=== PATIENT | male | born 1950 | race Caucasian/White ===

== ENCOUNTER 2018-10-31 14:10 | Observation (INO) | payer MEDICARE, BC ==
[~2018-10-31] VITALS: Ht 188 cm; Wt 128.0 kg
[2018-10-31] MEDS ORDERED: SODIUM CHLORIDE FLUSH 10ML SYR IVF ONE (14:30)
[2018-10-31 14:43] LABS: HCT (SEDRATE) 48.2 % (39.2-51.8)
[2018-10-31 14:45] LABS: BASOPHILS # (AUTO) 0.07 x10^3/uL (0-0.1); BASOPHILS % (AUTO) 1 % (0-1); EOSINOPHILS # (AUTO) 0.61 x10^3/uL (0-0.4); EOSINOPHILS % (AUTO) 8 % (1-7); LYMPHOCYTES % (AUTO) 22 % (22-44); MD NO; MEAN CORPUSCULAR HEMOGLOBIN 29.7 pg (27.5-34.5); MEAN PLATELET VOLUME 8.7 fL (7.4-10.4); MONOCYTES # (AUTO) 0.47 x10^3/uL (0.2-0.8); MONOCYTES % (AUTO) 6 % (2-9); NEUTROPHILS # (AUTO) 4.55 x10^3/uL (1.8-6.8); NEUTROPHILS % (AUTO) 62 % (42-75); PLATELET COUNT 193 x10^3/uL (130-400); RED BLOOD COUNT 5.37 x10^6/uL (4.38-5.82); RED CELL DISTRIBUTION WIDTH 13.8 % (9.4-14.8)
[2018-10-31 14:53] LABS: PROTHROMBIN TIME 10.5 Seconds (9.6-11.5)
[2018-10-31 14:55] LABS: ALBUMIN 3.9 g/dL (3.4-5.0); ANION GAP 7 mmol/L (5-15); CALCIUM 8.9 mg/dL (8.5-10.1); CHLORIDE 110 mmol/L (98-107)
[2018-10-31] MEDS ORDERED: PLEASE ENTER ALLERGIES MC SCH (15:03)
[2018-10-31] MEDS ORDERED: ATOR40TA78 PO (15:04)
[2018-10-31] MEDS ORDERED: TAMS-11 PO (15:04)
[2018-10-31] MEDS ORDERED: ASPI-496 PO (15:04)
[2018-10-31] MEDS ORDERED: AMLO-150 PO (15:04)
[2018-10-31] MEDS ORDERED: OMNIPAQUE 350 MG/ML, 100ML BOTTLE ONE (15:48)
[2018-10-31] MEDS ORDERED: ASPIRIN 325 MG TABLET ONE (16:11)
--- NOTE | 2018-10-31 16:18 | NUR ---
CONTINUE TO MONITOR PT. NO NEURO SYMPTOMS AT THIS TIME. AWARE OF INTENT TO ADMIT
[2018-10-31] MEDS ORDERED: ASPIRIN 325 MG TABLET PO ONE (16:30)
[2018-10-31 16:53] LABS: CHOL/HDL RATIO 3.6; LDL/HDL RATIO 1.4 (0.5-3.0)
--- NOTE | 2018-10-31 17:15 | NUR ---
HOSPITALIST AT BEDSIDE
[2018-10-31] MEDS ORDERED: DOCUSATE 100 MG CAPSULE PO PRN (17:30)
[2018-10-31] MEDS ORDERED: ONDANSETRON 2MG/ML, 2ML IVPush PRN (17:30)
[2018-10-31] MEDS ORDERED: ACETAMINOPHEN 325 MG TABLET PO PRN (17:30)
[2018-10-31] MEDS ORDERED: CYCLOBENZAPRINE 10 MG TABLET PO PRN (17:30)
[2018-10-31] MEDS ORDERED: OXYcodone IR 5MG TABLET PO PRN (17:30)
[2018-10-31] MEDS ORDERED: TRAZODONE 50MG TABLET PO PRN (17:30)
[2018-10-31 17:36] LABS: HEMOGLOBIN A1C 5.9 % (4.2-6.3)
--- NOTE | 2018-10-31 19:43 | NUR ---
NEUROLOGIST AT BEDSIDE
--- NOTE | 2018-10-31 20:52 | NUR ---
ASSUMED CARE OF PATIENT. REPORT GIVEN FROM YAEL IBARRA
[2018-10-31] MEDS ORDERED: ATORVASTATIN 40 MG TABLET PO SCH ×2 (21:00)
--- NOTE | 2018-10-31 21:36 | NUR ---
REPORT CALLED INTO YAEL HOLCOMB
[2018-10-31 21:45] VITALS: BP 152/85
[2018-10-31] MEDS: PLEASE ENTER ALLERGIES MC SCH (22:00)
[2018-11-01 01:14] VITALS: BP 135/91
[2018-11-01] MEDS: PLEASE ENTER ALLERGIES MC SCH ×2 (04:43→12:21)
[2018-11-01 07:07] VITALS: BP 138/89
[2018-11-01] MEDS ORDERED: DIPHENHYDRAMINE 25 MG CAPSULE PO ONE (08:30)
[2018-11-01] MEDS ORDERED: OMEPRAZOLE 20 MG CAPSULE.DR PO SCH (08:30)
[2018-11-01] MEDS ORDERED: ASPIRIN 81 MG TABLET CHEW PO/NG SCH (09:00)
[2018-11-01] MEDS ORDERED: CLOPIDOGREL 75 MG TABLET PO SCH (09:00)
[2018-11-01] MEDS ORDERED: AMLODIPINE 5 MG TABLET PO SCH (09:00)
[2018-11-01] MEDS ORDERED: TAMSULOSIN 0.4 MG CAP.ER.24H PO SCH (09:00)
[2018-11-01] MEDS ORDERED: ASPI-496 PO (12:50)
[2018-11-01] MEDS ORDERED: CLOP75TA PO (12:50)
[2018-11-01] MEDS ORDERED: ATOR-2 PO (12:50)
[2018-11-01 12:59] VITALS: BP 131/82
== END 2018-11-01 14:09 | disposition home or self-care (01) ==
LOC: ED 15:07 → EDIP 17:05 → 4EST 21:41 → DCLOUNGE 11-01 13:46
PROVIDERS: ADMIT Internal Medicine; ATTEND Internal Medicine
DX: G45.9 Transient cerebral ischemic attack, unspecified (principal); E16.2 Hypoglycemia, unspecified; E78.5 Hyperlipidemia, unspecified; I10 Essential (primary) hypertension; N40.0 Benign prostatic hyperplasia without lower urinary tract symptoms; R47.01 Aphasia
CPT/HCPCS: 36415; 70450; 70496; 70498; 70551; 80048; 80061; 82040; 83036; 83735; 85025; 85610; 85651; 93005; 93306; 97162; 97165; 99284; G0378; Q0163; Q9967

== ENCOUNTER 2019-05-29 10:04 | Emergency (ER) | payer MEDICARE, BC, OTHER ==
[~2019-05-29] VITALS: Ht 182.9 cm; Wt 126.0 kg
[~2019-05-29 10:04] MED LIST: AMLO-150 PO; ASPI-496 PO; ATOR-2 PO; ATOR40TA78 PO; CLOP75TA PO; TAMS-11 PO
--- NOTE | 2019-05-29 10:29 | NUR ---
TASK RN NOTE: PT PRESENTS TO ED WITH C/O NUMBNESS TO RIGHT SIDE OF MOUTH, PROGRESSING TO RIGHT ARM AND LEG WEAKNESS, AND SLURRED SPEECH/DIFFICULTLY WITH WORD FINDING, ONSET AT APPROX 0900 THIS AM. PT REPORTS SYMPTOMS HAVE ALREADY IMPROVED SIGNIFICANTLY. PT AMBULATORY, NO SLURRED SPEECH NOTED AT THIS TIME. NO FOCAL WEAKNESS NOTED ON ASSESSMENT. NO DRIFT. PUPILS EQUAL, ROUND AND REACTIVE. SLIGHT RIGHT FACIAL DROOP NOTED. PT ATTACHED TO ALL MONITORS, FSBS 120, PIV PLACED, LABS DRAWN. AWARE OF CURRENT BP 184/103. AWAITING FURTHER ORDERS AT THIS TIME.
--- NOTE | 2019-05-29 10:29 | NUR ---
LINDA MEDINA AT BEDSIDE
--- NOTE | 2019-05-29 10:35 | NUR ---
REPORT GIVEN TO PRIMARY RN TIGRE.
[2019-05-29 10:48] LABS: MEAN CORPUSCULAR HGB CONC 33.5 g/dL (33.2-36.2); MEAN CORPUSCULAR VOLUME 92.6 fL (81-97); MEAN PLATELET VOLUME 8.6 fL (7.4-10.4); PLATELET COUNT 221 x10^3/uL (130-400); RED BLOOD COUNT 5.39 x10^6/uL (4.38-5.82); RED CELL DISTRIBUTION WIDTH 13.5 % (9.4-14.8)
--- NOTE | 2019-05-29 10:50 | NUR ---
PT NOW BEING TAKEN TO CT
--- NOTE | 2019-05-29 10:50 | NUR ---
PT AMBULATED TO BR WITH STEADY GAIT, UA COLLECTED AND SENT TO LAB
[2019-05-29 10:57] LABS: ALANINE AMINOTRANSFERASE 43 U/L (12-78); ALBUMIN 4.1 g/dL (3.4-5.0); ANION GAP 9 mmol/L (5-15); CALCIUM 8.9 mg/dL (8.5-10.1); CHLORIDE 108 mmol/L (98-107); CREATININE 1.28 mg/dL (0.7-1.3)
[2019-05-29 10:58] LABS: CULTURE INDICATED? NO; MICROSCOPIC NOT IND
[2019-05-29 11:01] LABS: ALKALINE PHOSPHATASE 114 U/L (45-117); BILIRUBIN,TOTAL 0.9 mg/dL (0.2-1.0); TOTAL PROTEIN 7.5 g/dL (6.4-8.2); TROPONIN I < 0.015 ng/mL (0.000-0.045)
[2019-05-29 11:09] LABS: MD SCAN
[2019-05-29 11:10] LABS: BASOPHILS # (AUTO) 0.03 x10^3/uL (0-0.1); BASOPHILS % (AUTO) 0 % (0-1); EOSINOPHILS % (AUTO) 0 % (1-7); LYMPHOCYTES % (AUTO) 5 % (22-44); MONOCYTES # (AUTO) 0.43 x10^3/uL (0.2-0.8); MONOCYTES % (AUTO) 3 % (2-9); NEUTROPHILS # (AUTO) 15.63 x10^3/uL (1.8-6.8); NEUTROPHILS % (AUTO) 92 % (42-75)
--- NOTE | 2019-05-29 11:56 | NUR ---
TASK RN:FIRST CONTACT WITH PT. Pt being transported on gurney to imaging. NADN. No needs expressed at this time.
[2019-05-29] MEDS ORDERED: ASPIRIN 81 MG TABLET CHEW PO ONE (12:00)
[2019-05-29] MEDS ORDERED: ASPIRIN 81 MG TABLET CHEW ONE (12:19)
[2019-05-29 12:30] VITALS: BP 155/79
--- NOTE | 2019-05-29 12:33 | NUR ---
PT BACK FROM MRI, EKG COMPLETED, PT MEDICATED PER MAR
[2019-05-29] MEDS ORDERED: CLOPIDOGREL 75 MG TABLET ONE (12:46)
[2019-05-29] MEDS ORDERED: CLOPIDOGREL 75 MG TABLET PO SCH (13:00)
--- NOTE | 2019-05-29 13:09 | NUR ---
Patient/Caregiver given discharge instructions and they have confirmed that they understand the instructions. Patient ambulatory with steady gait.
== END 2019-05-29 13:11 | disposition home or self-care (01) ==
LOC: ED 11:31
DX: I66.09 Occlusion and stenosis of unspecified middle cerebral artery (principal); I10 Essential (primary) hypertension
CPT/HCPCS: 36415; 70450; 70551; 71045; 80053; 81003; 82962; 84484; 85025; 93005; 99284